=== PATIENT | female | born 1965 | race Two or more races ===

== ENCOUNTER 2024-01-30 15:09 | Emergency (ER) | payer MEDICAID, OTHER ==
[~2024-01-30] VITALS: Ht 152.4 cm; Wt 67.4 kg
[2024-01-30] MEDS ORDERED: HYDR-4902 PO (17:36)
[2024-01-30] MEDS ORDERED: IBUP-1455 PO (17:36)
[2024-01-30 17:38] VITALS: BP 167/76; PULSE 57; RESP 18; TEMP 97.6; O2SAT 98
[2024-01-30] MEDS: KETOROLAC TROMETH 60MG/2ML VIAL IM ONE (17:38)
== END 2024-01-30 18:14 | disposition home or self-care (01) ==
LOC: ER 15:09
DX: S16.1XXA Strain of muscle, fascia and tendon at neck level, initial encounter (principal); V89.2XXA Person injured in unspecified motor-vehicle accident, traffic, initial encounter; Y93.89 Activity, other specified; Y92.89 Other specified places as the place of occurrence of the external cause; Y99.8 Other external cause status
CPT/HCPCS: 72040; 72100; 72131; 96372; 99285; J1885

== ENCOUNTER 2024-08-10 17:38 | Emergency (ER) | payer MEDICAID ==
[~2024-08-10] VITALS: Ht 152.4 cm; Wt 68.0 kg
[~2024-08-10 17:38] MED LIST: HYDR-4902 PO; IBUP-1455 PO
[2024-08-10 18:27] VITALS: TEMP 98
[2024-08-10] MEDS ORDERED: CYCL-837 PO (19:02)
[2024-08-10] MEDS ORDERED: ACET500T58 PO (19:02)
[2024-08-10 19:03] VITALS: BP 156/79; PULSE 68; RESP 18; O2SAT 96
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
== END 2024-08-10 19:13 | disposition home or self-care (01) ==
LOC: ER 17:43
DX: S16.1XXA Strain of muscle, fascia and tendon at neck level, initial encounter (principal); S39.012A Strain of muscle, fascia and tendon of lower back, initial encounter; R51.9 Headache, unspecified; I10 Essential (primary) hypertension; Z79.899 Other long term (current) drug therapy; V89.2XXA Person injured in unspecified motor-vehicle accident, traffic, initial encounter; Y93.89 Activity, other specified; Y92.410 Unspecified street and highway as the place of occurrence of the external cause; Y99.8 Other external cause status